=== PATIENT | male | born 1995 | race Caucasian/White ===

== ENCOUNTER 2017-11-12 20:40 | Emergency (ER) | payer OTHER, BC ==
[~2017-11-12] VITALS: Ht 190.5 cm; Wt 131.5 kg
--- OUTSIDE RECORDS SUMMARY | 2017-11-12 20:45 | XMS REPORT | Continuity of Care Document ---
Author Author [facility] Organization [facility] Address Unknown Phone Unavailable Allergies Active Description Code Type Severity Reaction Onset Reported/Identified Relationship to Patient Clinical Status Yes No Known Drug Allergies [id number] Drug Allergy Unknown N/A 06/26/2013 Medications There is no data. Problems Date Dx Coded Attending Type Code Diagnosis Diagnosed By 06/27/2013 ALIE BOCANEGRA MD Ot 305.00 ALCOHOL ABUSE-UNSPEC 06/27/2013 ALIE BOCANEGRA MD Ot 873.43 OPEN WOUND OF LIP 06/27/2013 ALIE BOCANEGRA MD Ot E000.8 OTHER EXTERNAL CAUSE STATUS 06/27/2013 ALIE BOCANEGRA MD Ot E849.0 ACCIDENT IN HOME 06/27/2013 ALIE BOCANEGRA MD Ot E888.1 FALL STRIKING OBJECT NEC 06/17/2014 Ot 427.9 12/18/2014 Ot 427.9 10/25/2015 Ot 427.9 CARDIAC DYSRHYTHMIA NOS Procedures Code Description Performed By Performed On 96.04 06/27/2013 96.71 06/27/2013 Results There is no data. Encounters ACCT No. Visit Date/Time Discharge Status Pt. Type Provider Facility Loc./Unit Complaint [id number] 06/27/2013 02:25:00 06/27/2013 09:50:00 DIS Inpatient ALIE BOCANEGRA MD [facility] ICU HEAD INJURY,AMS,ALCOHOL INTOXICATION [id number] 08/15/2011 16:38:00 Document Registration
[2017-11-12] MEDS ORDERED: LIDOCAINE 1% INJ 20 ML 20 ML VIAL ONE (20:56)
[2017-11-12] MEDS ORDERED: LIDOCAINE 2% 20 ML (XYLOCAINE) VIAL INJ ONE (21:00)
[2017-11-12] MEDS ORDERED: TETANUS,DIPTH,PERTUSS P/F (BOOSTRIX) 0.5 ML VIAL IM STA (21:12)
[2017-11-12] MEDS ORDERED: RX-TRAMADOL 50 MG (ULTRAM) TAB PPK#4 PO ONE (21:15)
[2017-11-12] MEDS ORDERED: RX-NAPROXEN (NAPROSYN) 250 MG TAB PPK#4 PO ONE (21:15)
[2017-11-12] MEDS ORDERED: RX-TRIMETH/SULFA. 160-800 MG (BACTRIM DS) TAB PPK#2 PO ONE (21:15)
[2017-11-12] MEDS ORDERED: RX-MUPIROCIN (BACTROBAN) 2% OINT 22 GM TUBE TOP STA (21:19)
--- NOTE | 2017-11-12 21:20 | ED Upper Extremity ---
General Chief Complaint: Foreign Body Stated Complaint: L HAND METAL IN PINKIE Nursing Triage Note: PT HAS METAL WIRE IMPALED IN LEFT INDEX FINGER. Source: patient Exam Limitations: no limitations History of Present Illness Date Seen by Provider: Nov 12, 2017 Time Seen by Provider: 20:50 Initial Comments PT ARRIVES VIA POV FROM WORK AT HOME DEPOT STATES HE WAS PULLING ON A REFRIGERATOR BOX, THAT WAS WRAPPED WITH TWISTED DOUBLE WIRE, AND HIS LEFT 5TH FINGER GOT CAUGHT ON THE WIRE AND ONE OF THE TWO WIRES HAS IMPALED HIS LEFT 5TH FINGER OCCURRED JUST PRIOR TO ARRIVAL NO PARESTHESIAS OR MOTOR DEFICITS PT IS RIGHT HANDED NO PRIOR INJURY TO THIS FINGER OR HAND. PT IS NOT UP TO DATE ON TETANUS VACCINE Allergies and Home Medications Allergies Coded Allergies: No Known Drug Allergies (Unverified , 06/26/13) Home Medications Sulfamethoxazole/Trimethoprim 1 Each Tablet, 1 EACH PO BID Prescribed by: MARIJA SCHWARTZ on 11/12/172131 Patient Home Medication List Home Medication List Reviewed: Yes Review of Systems Constitutional: no symptoms reported Musculoskeletal: see HPI Skin: see HPI Psychiatric/Neurological: No Symptoms Reported Past Mjvuoat-Ltlpuj-Wcurpw Hx Patient Social History Alcohol Use: Occasionally Uses Recreational Drug Use: No Smoking Status: Never a Smoker Recent Foreign Travel: No Contact w/Someone Who Travel: No Immunizations Up To Date Tetanus Booster (TDap): More than 5yrs PED Vaccines UTD: Yes Past Medical History Surgeries: Yes (mole removal) Respiratory: No Cardiac: Yes (SVT, Irregular heart, normal with exertion) Neurological: No Reproductive Disorders: No Sexually Transmitted Disease: No HIV/AIDS: No Gastrointestinal: No Musculoskeletal: No Endocrine: No HEENT: No Cancer: No Psychosocial: No Integumentary: No Blood Disorders: No Adverse Reaction/Blood Tranf: No Family Medical History Cancer Cataract 03 FATHER Chest pain Family history: Alzheimer's disease 03 FATHER (paternal grandmother) Family history: Diabetes mellitus Hearing loss 03 FATHER (paternal grandfather) Hypercholesterolemia Kidney disease 03 FATHER (father had kidney stones) Stroke 03 MOTHER (maternal Grandfather) No Family History of: Seizure disorder Tuberculosis Physical Exam Vital Signs Vital Signs - First Documented 11/12/17 20:45 Temp 98.0 Pulse 77 Resp 21 B/P (MAP) 164/100 (121) Pulse Ox 97 O2 Delivery Room Air Capillary Refill : Height, Weight, BMI Height: 6'3.00" Weight: 273lbs. 0.0oz. 123.557555ax; BMI Method:Estimated General Appearance: WD/WN, no apparent distress Hand: Left (5TH FINGER, WITH PIECE OF METAL EMBEDDED IN DISTAL PHALANX --2 WIRES TWISTED TOGETHER, WITH ONE END OF ONE OF THE WIRES EMBEDDED APPROXIMATLY 2 CM INTO SUB Q SKIN, WITH TENTING ALL ALONG THE PATH OF THE WIRE. PUNCTURE SITE 2 CM V-SHAPED SUPERFICIAL LACERATION. DISTAL SENSORY/VASCULAR INTACT. ) Neurologic/Psychiatric: no motor/sensory deficits, alert, normal mood/affect, oriented x 3 Skin: normal color, warm/dry, other ( ABOVE) Procedures/Interventions I&D : Progress AREA CLEANSED WITH BETASEPT INJECTED WITH 1% LIDOCAINE WIRE EASILY REMOVED WITHOUT DIFFICULTY FULL ROM WITHOUT DIFFICULTY AFTER REMOVAL MOTOR/SENSORY/VASCULAR INTACT. AREA CLEANSED AND DRESSED WITH BACTROBAN AND GAUZE. FINGER SPLINT APPLIED. Progress/Results/Core Measures Results/Orders My Orders Orders - MARIJA SCHWARTZ DO Lidocaine 2% Injection 20 Ml (Xylocaine (11/12/17 21:00) Lidocaine 1% Inj 20 Ml (Xylocaine 1% Inj (11/12/17 20:56) Dipht,Pertuss(Acell),Tet Adult (Boostrix (11/12/17 21:12) Wound Dressing-Ed (11/12/17 21:12) Ed Ortho Supplies Order (11/12/17 21:12) Rx-Naproxen (Rx-Naprosyn) (11/12/17 21:15) Rx-Tramadol Hcl (Rx-Ultram) (11/12/17 21:15) Rx-Trimeth/Sulfameth Ds Tab (Rx-Bactrim/ (11/12/17 21:15) Rx-Mupirocin 2% Oint (Rx-Bactroban) (11/12/17 21:19) Rx-Mupirocin 2% Oint (Rx-Bactroban) (11/12/17 21:22) Medications Given in ED Current Medications Medications Dose Ordered Sig/Lg Route Start Time Stop Time Status Last Admin Dose Admin Lidocaine HCl 20 ml STK-MED ONCE .ROUTE 11/12/17 20:56 11/12/17 21:00 DC 9/3/18 21:00 20 ML Naproxen 250 mg ONCE ONCE PO 11/12/17 21:15 11/12/17 21:16 DC 11/12/17 21:50 250 MG Tramadol HCl 50 mg ONCE ONCE PO 11/12/17 21:15 11/12/17 21:16 DC 11/12/17 21:50 50 MG Trimethoprim/ Sulfamethoxazole 1 tab ONCE ONCE PO 11/12/17 21:15 11/12/17 21:16 DC 11/12/17 21:50 1 TAB Vital Signs/I&O 11/12/17 11/12/17 20:45 21:54 Temp 98.0 98.0 Pulse 77 77 Resp 21 21 B/P (MAP) 164/100 (121) 140/88 (121) Pulse Ox 97 97 O2 Delivery Room Air Departure Impression Primary Impression: FOREIGN BODY IN LEFT FIFTH FINGER Additional Impression: Nwfnawhvku-nshzdbbpg-xxtilta (DPT) vaccination administered at current visit Disposition: HOME, SELF-CARE Condition: Improved Departure-Patient Inst. Referrals: MINDY MCBRIDE DO (PCP/Family) Primary Care Physician Patient Instructions: Diphtheria and Tetanus Toxoids, and Acellular Pertussis Vaccine, Wound Care (DC) Add. Discharge Instructions: LEAVE DRESSING IN PLACE FOR 24 HOURS AFTER 24 HOURS, CLEAN AREA TWICE A DAY WITH ANTIBACTERIAL SOAP AND WATER, APPLY ANTIBIOTIC OINTMENT AND FRESH DRESSING TWICE A DAY WEAR SPLINT AT ALL TIMES ICE / ELEVATE AND APPLY PRESSURE IF BLEEDING OCCURS TYLENOL AND MOTRIN NEEDED FOR PAIN FOLLOW UP WITH OCCUPATIONAL HEALTH/[facility]MAN'[facility] DR IN 2 DAYS FOR FURTHER CARE All discharge instructions reviewed with patient and/or family. Voiced understanding. Scripts Sulfamethoxazole/Trimethoprim (Bactrim Ds Tablet) 1 Each Tablet 1 EACH PO BID, #20 TAB Prov: MARIJA SCHWARTZ DO 11/12/17 MARIJA SCHWARTZ DO Nov 12, 2017 21:20
[2017-11-12] MEDS ORDERED: RX-MUPIROCIN (BACTROBAN) 2% OINT 22 GM TUBE ONE (21:22)
[2017-11-12] MEDS ORDERED: SULF1TAB35 PO (21:32)
[2017-11-12 21:54] VITALS: BP 140/88
== END 2017-11-12 21:54 | disposition home or self-care (01) ==
LOC: EDUNIT# 20:40 → ER 20:42
DX: S60.457A Superficial foreign body of left little finger, initial encounter (principal); Z23 Encounter for immunization; W23.1XXA Caught, crushed, jammed, or pinched between stationary objects, initial encounter
CPT/HCPCS: 29130; 90471; 90715

== ENCOUNTER 2021-08-13 20:10 | Emergency (ER) | payer BC, OTHER ==
[~2021-08-13] VITALS: Ht 193 cm; Wt 159.1 kg
[~2021-08-13 20:10] MED LIST: SULF1TAB38 PO
[2021-08-13] MEDS ORDERED: ROCURONIUM 50 MG/5 ML (ZEMURON) VIAL IV ONE (20:14)
[2021-08-13] MEDS ORDERED: CATHETER FLUSH 10 ML SYR IVP ONE (20:14)
[2021-08-13] MEDS ORDERED: MIDAZOLAM 5 MG/5 ML (VERSED) VIAL IJ ONE (20:14)
[2021-08-13] MEDS ORDERED: fentaNYL INJ 100 MCG/2 ML AMP IV ONE (20:14)
[2021-08-13] MEDS ORDERED: SUCCINYLCHOLINE INJ 100 MG/5 ML SYR/VIAL INJ ONE (20:14)
[2021-08-13] MEDS ORDERED: LACTATED RINGERS 1,000 ML IV ONE ×2 (20:15→21:15)
[2021-08-13 20:26] LABS: BASOPHILS # (AUTO) 0.1 10^3/uL (0.0-0.1); BASOPHILS % (AUTO) 1 % (0-10); EOSINOPHILS % (AUTO) 1 % (0-10); HEMATOCRIT 48 % (40-54); HEMOGLOBIN 16.9 g/dL (13.3-17.7); LYMPHOCYTES # (AUTO) 1.4 10^3/uL (1.0-4.0); LYMPHOCYTES % (AUTO) 21 % (12-44); MEAN CORPUSCULAR HEMOGLOBIN 29 pg (25-34); MEAN CORPUSCULAR HGB CONC 35 g/dL (32-36); MEAN CORPUSCULAR VOLUME 83 fL (80-99); MEAN PLATELET VOLUME 9.6 fL (9.0-12.2); MONOCYTES # (AUTO) 0.2 10^3/uL (0.0-1.0); MONOCYTES % (AUTO) 4 % (0-12); NEUTROPHILS # (AUTO) 4.8 10^3/uL (1.8-7.8); NEUTROPHILS % (AUTO) 74 % (42-75); PLATELET COUNT 253 10^3/uL (130-400); WHITE BLOOD COUNT 6.5 10^3/uL (4.3-11.0)
[2021-08-13] MEDS ORDERED: ADENOSINE 6 MG/2 ML (ADENOCARD) VIAL IV ONE (20:30)
[2021-08-13 20:35] LABS: INR 1.3 (0.8-1.4); PROTHROMBIN TIME PATIENT 16.7 SEC (12.2-14.7)
[2021-08-13 20:38] LABS: CHLORIDE 103 MMOL/L (98-107); POTASSIUM 3.8 MMOL/L (3.6-5.0); SODIUM 139 MMOL/L (135-145)
[2021-08-13 20:39] LABS: ALBUMIN 4.1 GM/DL (3.2-4.5)
[2021-08-13 20:40] LABS: CALCIUM 8.8 MG/DL (8.5-10.1)
[2021-08-13 20:41] LABS: GLUCOSE 93 MG/DL (70-105); TOTAL PROTEIN 7.2 GM/DL (6.4-8.2)
[2021-08-13 20:42] LABS: BILIRUBIN,TOTAL 2.3 MG/DL (0.1-1.0); CARBON DIOXIDE 16 MMOL/L (21-32)
[2021-08-13] MEDS ORDERED: dilTIAZem DRIP PRE-MIX 125 ML IV ONE (20:44)
[2021-08-13 20:45] LABS: ALKALINE PHOSPHATASE 70 U/L (40-136); CREATININE SERUM 1.49 MG/DL (0.60-1.30); GFR ESTIMATED 66
[2021-08-13 20:46] LABS: ACETAMINOPHEN < 10 UG/ML (10-30); BUN/CREATININE RATIO 9
[2021-08-13 20:47] LABS: MAGNESIUM 1.4 MG/DL (1.6-2.4)
[2021-08-13 20:48] LABS: ALANINE AMINOTRANSFERASE 77 U/L (0-55); CREATINE KINASE 89 U/L (30-200)
[2021-08-13] MEDS ORDERED: NS IV 1000 ML 1,000 ML ONE (20:49)
[2021-08-13 20:56] LABS: CREATINE KINASE MB 0.5 NG/ML (<6.6)
[2021-08-13 20:58] LABS: ERYTHROCYTE SEDIMENTATION RATE 11 MM/HR (0-15)
[2021-08-13] MEDS ORDERED: MAGNESIUM 1 GM/100 ML IVPB 200 ML IV ONE (21:00)
[2021-08-13] MEDS ORDERED: MAGNESIUM 1 GM/100 ML IVPB 100 ML IV SCH (21:00)
[2021-08-13 21:08] LABS: TSH (THYROID ANALYZER) 1.27 UIU/ML (0.35-4.94)
[2021-08-13] MEDS ORDERED: ACETAMINOPHEN 650 MG SUPP (TYLENOL) PR ONE (21:15)
[2021-08-13] MEDS ORDERED: NS IV 1000 ML 1,000 ML IV SCH (21:15)
[2021-08-13] MEDS ORDERED: cefTRIAXone 2,000 MG in NS (IVPB) 50 ML IV ONE (21:15)
[2021-08-13 21:24] LABS: BILIRUBIN,URINE 1+ (NEGATIVE); CLARITY,URINE CLOUDY; COLOR,URINE YELLOW; GLUCOSE, URINE (UA) NEGATIVE (NEGATIVE); KETONES,URINE TRACE (NEGATIVE); LEUKOCYTE ESTERASE ,URINE NEGATIVE (NEGATIVE); NITRITE,URINE NEGATIVE (NEGATIVE); PH,URINE 6.5 (5-9); PROTEIN,URINE 2+ (NEGATIVE)
--- NOTE | 2021-08-13 21:32 | Diagnostic Imaging Report ---
INDICATION: Altered mental status. EXAMINATION: Portable chest at 9:10 PM. There is an ET tube with the tip at the thoracic inlet. There is an NG tube projecting over the stomach. There is gaseous distention of the stomach. There is some infiltrate present in the right upper lobe. There is some bibasilar discoid atelectasis. IMPRESSION: Right upper lobe infiltrate. ET tube tip is at the thoracic inlet. It could safely be advanced 4 cm. Dictated by: Dictated on workstation # [id number]
[2021-08-13 21:33] LABS: BACTERIA,URINE LARGE /HPF
[2021-08-13] MEDS ORDERED: PROPOFOL DRIP (ICU) 100 ML IV ONE (21:33)
[2021-08-13 21:37] LABS: AMPHETAMINE SCREEN, URINE NEGATIVE (NEGATIVE); BARBITURATE SCREEN URINE NEGATIVE (NEGATIVE); BENZODIAZEPINES SCREEN URINE NEGATIVE (NEGATIVE); CANNABINOID SCREEN, URINE NEGATIVE (NEGATIVE); COCAINE SCREEN URINE NEGATIVE (NEGATIVE); METHADONE STAT NEGATIVE (NEGATIVE); OPIATE SCREEN URINE NEGATIVE (NEGATIVE); OXYCODONE STAT NEGATIVE (NEGATIVE); PROPOXYPHENE STAT NEGATIVE (NEGATIVE); TRICYCLIC ANTIDEPRESSANTS SCRE NEGATIVE (NEGATIVE)
[2021-08-13] MEDS ORDERED: PROPOFOL DRIP (ICU) 100 ML IV SCH (21:45)
--- NOTE | 2021-08-13 21:57 | Diagnostic Imaging Report ---
PROCEDURE: CT head wo r/o stroke. TECHNIQUE: Multiple contiguous axial images were obtained through the brain without the use of intravenous contrast. Auto Exposure Controls were utilized during the CT exam to meet ALARA standards for radiation dose reduction. INDICATION: Altered mental status The ventricles are normal in size, shape and position. There are no masses or hemorrhages. There are no extra-axial fluid collections. IMPRESSION: Negative CT head. There is no evidence for acute infarct. Dictated by: Dictated on workstation # [id number]
[2021-08-13] MEDS ORDERED: VANCOMYCIN INJECTION 1,000 MG in NS (IVPB) 250 ML IV SCH (23:15)
[2021-08-13] MEDS ORDERED: ACYCLOVIR INJECTION 500 MG in NS (IVPB) 100 ML IV SCH (23:15)
[2021-08-13] MEDS ORDERED: ONDANSETRON 4 MG/2 ML (SDV) Z0FRAN ONE (23:29)
[2021-08-13] MEDS ORDERED: ONDANSETRON 4 MG/2 ML (SDV) Z0FRAN IVP ONE (23:30)
[2021-08-13] MEDS ORDERED: MIDAZOLAM 5 MG/5 ML (VERSED) VIAL ONE (23:33)
[2021-08-13] MEDS ORDERED: PROPOFOL DRIP (ICU) 200 ML IV ONE (23:35)
[2021-08-13 23:56] LABS: APPEARANCE,CSF CLEAR; COLOR,CSF COLORLESS; RED BLOOD CELL,CSF 3.33 CELLS (0-0); WHITE BLOOD CELL,CSF 2.22 CELLS (0-5)
[2021-08-13 23:58] LABS: CSF TUBE NUMBER 3
--- NOTE | 2021-08-14 00:32 | Anesthesia-Procedure Note ---
Procedures/Interventions Procedure Start/Stop/Diagnosis Date of Procedure: Aug 13, 2021 Start Time: 22:30 Referring Physician: Dr Murphy Preprocedural Diagnosis: Mental Status change, Fever Brief History Called for lumbar puncture. Pt had recent onset of mental status change and fever of greater than 106. Platelet count within normal limits. Spoke with family about the procedure d/t patient being intubated prior to my arrival and they wished for me to proceed with lumbar puncture. Stop Time: 23:15 Postprocedural Diagnosis: Same Intubation Reason Intubation/Diagnosis: Coughing/Vomiting S/P intubation (after LP done), ETT no longer in position RSI: Yes 100% pre-Ox, [id number]: Yes (100% FiO2 via ventilator with SaO2 in the low 90's.) Intubation Method: orotracheal Videoscope used: Yes (Maddox X3 blade) Grade View: 1 Medications: Propofol (100 mg IV), Rocuronium (50 mg IV), Succinylcholine (100 mg IV), Versed (5 mg IV) Mask Ventilation: positive (via ETT which was suspected to be just superior to the glottic opening) Positive End Tide CO2: Yes Breath Sounds after Intubation: bilateral-equal ETT Securred @ (cm): 24 Intubated with ease: Yes Intubation Complications: vomited (see above, with ETT in place but most likely extubated d/t coughing) Post Intubation Xray-done: Yes Lumbar Puncture Discussed Risk,Benefits: Yes Patient Consents: Yes (Verbal consent via family) Position: L3-4, Left Sterile Technique: Yes (Sterile prep and drape) Opening Pressure: 15 Fluid Color: Clear, slight heme tinge on first vial secondary to multiple attempts Spinal Needle Used: Other (22 G Quincke 5") Procedure Notes See above for lumbar puncture details. Attempted at L4-5 initially but only bony contact. Localized at L 3-4. + CSF after multiple needle redirects. Clear CSF noted with an opening pressure of 15 cm of CSF. ~2 ml CSF times first two vials and after ~ 1/2 ml in 3 vial CSF return stopped. Due to the difficulty of the procedure needle was withdrawn and CSF was sent to lab per Dr Murphy's order. Sterile bandage applied. HAVEN MOSLEY DO Aug 14, 2021 00:32
[2021-08-14 00:35] VITALS: BP 104/66
--- NOTE | 2021-08-14 07:54 | Diagnostic Imaging Report ---
INDICATION: Shortness of breath. Comparison is made with prior exam of 08/13/2021. FINDINGS: The endotracheal tube is in the upper trachea well above the scapular inlet. The left chest tube is in place. Nasogastric tube is in place. There is cardiomegaly and some venous congestion. IMPRESSION: The endotracheal tube is well above the thoracic inlet and needs to be advanced at least 10 cm. Cardiomegaly and some central pulmonary venous congestion the left pulmonary infiltrate. Dictated by: Dictated on workstation # [id number]
--- NOTE | 2021-08-14 08:07 | Diagnostic Imaging Report ---
EXAMINATION: Chest 1 view HISTORY: Tube placement COMPARISON: 08/13/2021 FINDINGS: Endotracheal tube tip terminates 4 cm above the iván. Gastric tube tip terminates below the field of view. There is right mid zone atelectasis. Lung volumes are small. Heart size is accentuated by portable technique. No pleural effusion or pneumothorax. IMPRESSION: 1. Right mid zone atelectasis and small lung volumes. Dictated by: Dictated on workstation # [id number]
[2021-08-14 09:26] LABS: CSF GLUCOSE 83 MG/DL (50-80)
[2021-08-14 09:32] LABS: CSF TOTAL PROTEIN 24 MG/DL (15-40)
--- NOTE | 2021-08-31 04:20 | ED General ---
General Chief Complaint: Altered Mental Status Stated Complaint: DISORIENTED,SOA Nursing Triage Note: Alerted to pt condition upon parents yelling in waiting area. Pt found sitting in chair, shaking head up and down and moving arms in rhythmic motion. Wheelchair to area. Pt attempted to stand to command with assist of three. In wheelchair to room. Again multi assist to stretcher, altered, and unable to follow commands. Attached to safety grooving machine operator. See further notes. Source of Information: Family Exam Limitations: Other (PT UNABLE TO PROVIDE ANY INFORMATION DUE TO ALTERED MENTAL STATUS. ) History of Present Illness Date Seen by Provider: Aug 13, 2021 Time Seen by Provider: 20:10 Initial Comments PT ARRIVES VIA POV FROM HOME WITH MULTIPLE FAMILY MEMBERS PT BROUGHT IN WHEELCHAIR FROM WAITING ROOM, WITH 3-4 PERSON ASSIST FOR TRANSFERS PT WITH ALTERED MENTAL STATUS--SYMPTOMS BEGAN JUST PRIOR TO ARRIVAL. PT HAD REPORTEDLY BEEN FINE ALL DAY. NO OTHER INFORMATION IS OBTAINABLE AT THIS TIME PT IS SEMI-OBTUNDED, KEEPS EYES CLOSED, SITTING UP AND NODDING HEAD BACK AND FORTH, HANDS GRIPPING ARM RESTS OF WHEELCHAIR--THIS STOPS WHEN ASKED TO STOP MOVING HIS HEAD PT DOES OPEN HIS EYES BRIEFLY TO COMMAND PT IS ABLE TO FOLLOW A COUPLE OF BASIC COMMANDS NOTED ABOVE, OTHERWISE IS NOT FOLLOWING COMMANDS WELL. PT IS MOANING AND GRUNTING PT IS HYPERVENTILATING ON ARRIVAL PT DOES NOT MAKE ANY ATTEMPT TO TALK OR ANSWER QUESTIONS. LATER WAS ABLE TO SPEAK WITH DAD AND PT'S AUNT, WHO IS AN RN HERE IN HOSPITAL THEY ARE ON THE PHONE WITH PT'S ROOM MATE AND ALL HAVE REPORTED THAT PT HAS BEEN FINE, NO RECENT ILLNESS AND ARE ALL ADAMANT THAT HE HAS NOT BEEN DRINKING ALCOHOL AND DOES NOT USE DRUGS. ROOM MATE STATES THERE ARE NO MEDICATIONS IN THE RESIDENCE OTHER THAN GOUT MEDICATION. PT HAS HISTORY OF SVT WHEN MUCH YOUNGER, BUT NO PROBLEMS FOR YEARS, AND NO MEDICATIONS OR PROCEDURES FOR IT. OTHERWISE NO PAST MEDICAL HISTORY Allergies and Home Medications Allergies Coded Allergies: No Known Drug Allergies (Unverified , 06/26/13) Patient Home Medication List Home Medication List Reviewed: No Sulfamethoxazole/Trimethoprim (Bactrim Ds Tablet) 1 Each Tablet, 1 EACH PO BID Prescribed by: MARIJA SCHWARTZ on 11/12/172131 Review of Systems Review of Systems Constitutional: see HPI (LATER DURING ER COURSE, PT NOTED TO HAVE FEVER OF 106.4. ) Respiratory: see HPI Psychiatric/Neurological: See HPI Past [id number] Hx Patient Social History Tobacco Use?: No Smoking Status: Never a Smoker Use of E-Cig and/or Vaping dev: Unable to obtain Use of E-Cig and/or Vaping Mikhail: Never a User Substance use?: No Alcohol Use?: No Immunizations Up To Date Tetanus Booster (TDap): More than 5yrs PED Vaccines UTD: Yes Past Medical History Surgeries: Yes (mole removal) Respiratory: No Cardiac: Yes (SVT, Irregular heart, normal with exertion) Irregular Heartbeat Neurological: No Reproductive Disorders: No Sexually Transmitted Disease: No HIV/AIDS: No Genitourinary: No Gastrointestinal: No Musculoskeletal: No Endocrine: No HEENT: No Cancer: No Psychosocial: No Integumentary: No Blood Disorders: No Adverse Reaction/Blood Tranf: No Family Medical History Cancer Cataract 03 FATHER Chest pain Family history: Alzheimer's disease 03 FATHER (paternal grandmother) Family history: Diabetes mellitus Hearing loss 03 FATHER (paternal grandfather) Hypercholesterolemia Kidney disease 03 FATHER (father had kidney stones) Stroke 03 MOTHER (maternal Grandfather) No Family History of: Seizure disorder Tuberculosis Physical Exam Vital Signs Capillary Refill : Less Than 3 Seconds Height, Weight, BMI Height: 6'3.00" Weight: 290lbs. 0.0oz. [id number]; 42.00 BMI Method:Stated General Appearance: WD/WN, Obese, Severe Distress, Other (MENTATION AND BEHAVIOR NOTED ABOVE. ) HEENT: PERRL/EOMI, Other (PUPILS PINPOINT AND EQUAL) Neck: Full Range of Motion Respiratory: Other (HYPERVENTILATING WITH UPPER AIRWAY WHEEZING AT INTERVALS. ) Cardiovascular: Tachycardia (HR 180-205) Gastrointestinal: Soft Extremity: Normal Capillary Refill Neurologic/Psychiatric: Other (MENTATION AND BEHVIOR NOTED ABOVE. DOES MOVE ALL EXTREMITES EQUALLY) Skin: Warm/Dry; No Rash Focused Exam Sepsis Stage: Severe Sepsis Possible Source: Unknown Lactate Level 08/13/21 21:24: Lactic Acid Level 3.05*H 08/13/21 23:23: Lactic Acid Level 2.37*H Time of Focused Exam: 22:00 Respiratory: Other (ON VENTILATOR. LUNGS CLEAR TO AUSCULTATION) Cardiovascular: No JVD, Tachycardia (BUT RATE IS NOW DOWN TO 120'S.) Skin: normal color, warm/dry Lactic Acid Level Laboratory Tests Test 08/13/21 21:24 08/13/21 23:23 Lactic Acid Level 3.05 MMOL/L (0.50-2.00) *H 2.37 MMOL/L (0.50-2.00) *H Within 3hrs of presentation: Admin fluids, Admin ABX, Blood cultures prior to ABX's, Focus exam, Lactate level Procedures/Interventions Reason for Intubation: Coughing/Vomiting S/P intubation (after LP done), ETT no longer in position Date of ETT Placement: Aug 13, 2021 Intubation Method: orotracheal Tube Size: 7.50 Medications: Propofol (100 mg IV), Rocuronium (50 mg IV), Succinylcholine (100 mg IV), Versed (5 mg IV) Positive End Tide CO2: Yes Breath Sounds after Intubation: bilateral-equal Intubation Complications: vomited (see above, with ETT in place but most likely extubated d/t coughing) Post Intubation Xray: Yes PT LATER RE-INTUBATED BY DR. MOSLEY AFTER PT BEGAN VOMITING AND DISPLACED ET TUBE AND NG TUBE. Discussed Risk,Benefits: Yes Patient Consents: Yes (Verbal consent via family) Position: L3-4, Left Sterile Technique: Yes (Sterile prep and drape) Opening Pressure: 15 Fluid Color: Clear, slight heme tinge on first vial secondary to multiple attempts PERFORMED BY DR. MOSLEY Defibrillation: CARDIOVERSION ATTEMPTS X 4 FOR SVT--NO CHANGE IN RATE OR RHYTHM Rhythm: SVT Progress/Results/Core Measures Suspected Sepsis SIRS Temperature: Pulse: 125 Respiratory Rate: 18 Laboratory Tests 08/13/21 20:18: White Blood Count 6.5 Blood Pressure 104 /66 Mean: 79 08/13/21 21:24: Lactic Acid Level 3.05*H 08/13/21 23:23: Lactic Acid Level 2.37*H Laboratory Tests 08/13/21 20:18: Creatinine 1.49H, INR Comment 1.3, Platelet Count 253, Total Bilirubin 2.3H Results/Orders Lab Results Laboratory Tests Test 08/13/21 20:13 08/13/21 20:18 08/13/21 20:23 08/13/21 21:16 Range/Units Lab Scanned Report Referred Lab Report [id number] White Blood Count 6.5 4.3-11.0 10^3/uL Red Blood Count 5.81 H 4.30-5.52 10^6/uL Hemoglobin 16.9 13.3-17.7 g/dL Hematocrit 48 40-54 % Mean Corpuscular Volume 83 80-99 fL Mean Corpuscular Hemoglobin 29 25-34 pg Mean Corpuscular Hemoglobin Concent 35 32-36 g/dL Red Cell Distribution Width 13.5 10.0-14.5 % Platelet Count 253 130-400 10^3/uL Mean Platelet Volume 9.6 9.0-12.2 fL Immature Granulocyte % (Auto) 0 % Neutrophils (%) (Auto) 74 42-75 % Lymphocytes (%) (Auto) 21 12-44 % Monocytes (%) (Auto) 4 0-12 % Eosinophils (%) (Auto) 1 0-10 % Basophils (%) (Auto) 1 0-10 % Neutrophils # (Auto) 4.8 1.8-7.8 10^3/uL Lymphocytes # (Auto) 1.4 1.0-4.0 10^3/uL Monocytes # (Auto) 0.2 0.0-1.0 10^3/uL Eosinophils # (Auto) 0.0 0.0-0.3 10^3/uL Basophils # (Auto) 0.1 0.0-0.1 10^3/uL Immature Granulocyte # (Auto) 0.0 0.0-0.1 10^3/uL Erythrocyte Sedimentation Rate 11 0-15 MM/HR Prothrombin Time 16.7 H 12.2-14.7 SEC INR Comment 1.3 0.8-1.4 Activated Partial Thromboplast Time 33 24-35 SEC Sodium Level 139 135-145 MMOL/L Potassium Level 3.8 3.6-5.0 MMOL/L Chloride Level 103 98-107 MMOL/L Carbon Dioxide Level 16 L 21-32 MMOL/L Anion Gap 20 H 5-14 MMOL/L Blood Urea Nitrogen 14 7-18 MG/DL Creatinine 1.49 H 0.60-1.30 MG/DL Estimat Glomerular Filtration Rate 66 BUN/Creatinine Ratio 9 Glucose Level 93 70-105 MG/DL Calcium Level 8.8 8.5-10.1 MG/DL Corrected Calcium 8.7 8.5-10.1 MG/DL Magnesium Level 1.4 L 1.6-2.4 MG/DL Total Bilirubin 2.3 H 0.1-1.0 MG/DL Aspartate Amino Transf (AST/SGOT) 88 H 5-34 U/L Alanine Aminotransferase (ALT/SGPT) 77 H 0-55 U/L Alkaline Phosphatase 70 40-136 U/L Total Creatine Kinase 89 30-200 U/L Creatine Kinase MB 0.5 <6.6 NG/ML Myoglobin 46.3 10.0-92.0 NG/ML C-Reactive Protein High Sensitivity 7.88 H 0.00-0.50 MG/DL B-Type Natriuretic Peptide 48.3 <100.0 PG/ML Total Protein 7.2 6.4-8.2 GM/DL Albumin 4.1 3.2-4.5 GM/DL Triglycerides Level 257 H <150 MG/DL Procalcitonin 14.84 H <0.10 NG/ML TSH [place] Testing 1.27 0.35-4.94 UIU/ML Salicylates Level < 5.0 L 5.0-20.0 MG/DL Acetaminophen Level < 10 L 10-30 UG/ML Serum Alcohol < 10 <10 MG/DL Influenza Type A (RT-PCR) Not Detected Not Detecte Influenza Type B (RT-PCR) Not Detected Not Detecte SARS-CoV-2 RNA (RT-PCR) Not Detected Not Detecte Urine Color YELLOW Urine Clarity CLOUDY Urine pH 6.5 5-9 Urine Specific [place] 1.025 H 1.016-1.022 Urine Protein 2+ H NEGATIVE Urine Glucose (UA) NEGATIVE NEGATIVE Urine Ketones TRACE H NEGATIVE Urine Nitrite NEGATIVE NEGATIVE Urine Bilirubin 1+ H NEGATIVE Urine Urobilinogen 1.0 < = 1.0 MG/DL Urine Leukocyte Esterase NEGATIVE NEGATIVE Urine RBC (Auto) 1+ H NEGATIVE Urine RBC 2-5 H /HPF Urine WBC 5-10 H /HPF Urine Squamous Epithelial Cells 2-5 /HPF Urine Renal Epithelial Cells NONE /HPF Urine Crystals NONE /LPF Urine Bacteria LARGE H /HPF Urine Casts NONE /LPF Urine Mucus NEGATIVE /LPF Urine Culture Indicated CULTURE PENDING Urine Opiates Screen NEGATIVE NEGATIVE Urine Oxycodone Screen NEGATIVE NEGATIVE Urine Methadone Screen NEGATIVE NEGATIVE Urine Propoxyphene Screen NEGATIVE NEGATIVE Urine Barbiturates Screen NEGATIVE NEGATIVE Ur Tricyclic Antidepressants Screen NEGATIVE NEGATIVE Urine Phencyclidine Screen NEGATIVE NEGATIVE Urine Amphetamines Screen NEGATIVE NEGATIVE Urine Methamphetamines Screen NEGATIVE NEGATIVE Urine Benzodiazepines Screen NEGATIVE NEGATIVE Urine Cocaine Screen NEGATIVE NEGATIVE Urine Cannabinoids Screen NEGATIVE NEGATIVE Test 08/13/21 21:24 08/13/21 23:00 08/13/21 23:23 08/14/21 23:00 Range/Units Lactic Acid Level 3.05 *H 2.37 *H 0.50-2.00 MMOL/L CSF Tube Number 3 CSF Appearance CLEAR CSF Color COLORLESS CSF WBC 2.22 0-5 CELLS CSF RBC 3.33 H 0-0 CELLS CSF Lymphocytes % CSF Mononuclear WBCs % CSF Polynuclear WBCs % CSF Glucose 83 H 50-80 MG/DL CSF Total Protein 24 15-40 MG/DL Lyme Disease Screen IgG & IgM Ab 0.02 0.00-0.89 Index Lyme Antibody Interpretation Negative Negative Ehrlichia chaffeensis IgG Antibody <1:16 <1:16 Ehrlichia chaffeensis IgM Antibody <1:10 <1:10 West Nile Virus IgG Antibody 0.07 <=1.29 IV West Nile Virus IgM Antibody 0.24 <=0.89 IV Spotted Fever Group IgG Antibody <1:16 <1:16 Spotted Fever Group IgM Antibody <1:10 <1:10 [place] Antibody <1:20 CSF [place] Encephalitis IgG Ab <1:1 CSF [place] Encephalitis IgM Ab <1:1 CSF [place] Encephalitis Interp SEE FOOTNOTE CSF Eastern Equine Encephalitis IgG <1:1 CSF Eastern Equine Encephalitis IgM <1:1 CSF [place] Equine Encephalitis Interp SEE FOOTNOTE CSF [place] Encephalitis IgG Ab <1:1 CSF [place] Encephalitis IgM Ab <1:1 CSF [place] Encephalitis Interp SEE FOOTNOTE CSF Western Equine Encephalitis IgG <1:1 CSF Western Equine Encephalitis IgM <1:1 CSF West Equine Encephalitis Interp SEE FOOTNOTE CSF Herpes Simplex I IgG Ab Index <0.01 CSF Herpes Simplex Virus I IgM Ab NEGATIVE CSF Herpes Simplex II IgG Ab Index 0.19 CSF Herpes Simplex Virus II IgM Ab NEGATIVE CSF Lymphocytic choriomeningit IgG <1:1 CSF Lymphocytic choriomeningit IgM <1:1 CSF Lymphocytic choriomeningi Intrp SEE FOOTNOTE CSF Mumps Virus IgG Antibody <1:8 CSF Mumps Virus IgM Antibody <1:1 CSF Mumps Antibody Interpretation ANTIBODY NOT DETECT CSF West Nile Virus IgG Antibody <1.30 CSF West Nile Virus IgM Antibody <0.90 Reference Lab Test Specimen Type CSF Herpes Simplex Virus I DNA (PCR) Not Detected Not Detected Herpes Simplex Virus II DNA (PCR) Not Detected Not Detected Micro Results Microbiology 08/13/21 Blood Culture - Final, Complete No growth 08/13/21 Gram Stain - Final, Complete 08/13/21 CSF Culture - Final, Complete No growth 08/13/21 Blood Culture - Final, Complete Propionibacterium species 08/13/21 Gram Stain - Final, Complete 08/13/21 Sputum Culture - Final, Complete Usual upper respiratory anitra 08/13/21 Urine Culture - Final, Complete NO GROWTH My Orders Orders - MARIJA SCHWARTZ DO Accucheck Stat ONCE (08/13/21 20:13) Ed Iv/Invasive Line Start (08/13/21 20:13) Ekg Tracing (08/13/21 20:13) Catheter(Urinary) Insert & Ass 03,15 (08/13/21 20:13) Monitor-Rhythm Ecg Trace Only (08/13/21 20:13) Ct Head Wo-R/O Stroke (08/13/21 20:13) Acetaminophen (08/13/21 20:13) Alcohol (08/13/21 20:13) Arterial Blood Gas (08/13/21 20:13) Bnp [place] (08/13/21 20:13) Cbc With Automated Diff (08/13/21 20:13) Comprehensive Metabolic Panel (08/13/21 20:13) Creatine Kinase (08/13/21 20:13) Creatine Kinase Mb (08/13/21 20:13) Hs C Reactive Protein (08/13/21 20:13) Drug Screen Stat (Urine) (08/13/21 20:13) Magnesium (08/13/21 20:13) Protime With Inr (08/13/21 20:13) Partial Thromboplastin Time (08/13/21 20:13) Thyroid Analyzer (08/13/21 20:13) Ua Culture If Indicated (08/13/21 20:13) Erythrocyte Sedimentation Rate (08/13/21 20:13) Myoglobin Serum (08/13/21 20:13) Chest 1 View, Ap/Pa Only (08/13/21 20:13) Ed Iv/Invasive Line Start (08/13/21 20:13) Lactated Ringers (Lr 1000 Ml Iv Solution (08/13/21 20:15) Covid 19 Inhouse Test (08/13/21 20:18) Influenza A And B By Pcr (08/13/21 20:18) Isolation Central Supply Req (08/13/21 20:18) Adenosine Injection (Adenocard Injection (08/13/21 20:30) Diltiazem Drip Pre-Mix (Cardizem Drip Pr (08/13/21 20:44) Diltiazem Injection (Cardizem Injection) (08/13/21 20:44) Ns Iv 1000 Ml (Sodium Chloride 0.9%) (08/13/21 20:49) Magnesium 1 Gm/100 Ml Ivpb (Magnesium Prince (08/13/21 21:00) Magnesium 1 Gm/100 Ml Ivpb (Magnesium Prince (08/13/21 21:00) Acetaminophen Suppository (Tylenol Suppo (08/13/21 21:15) Blood Culture (08/13/21 21:09) Sputum Culture (08/13/21 21:09) Urine Culture (08/13/21 21:09) Ed Iv/Invasive Line Start (08/13/21 21:09) Ed Iv/Invasive Line Start (08/13/21 21:09) Vital Signs Adult Sepsis Patie Q15M (08/13/21 21:09) O2 (08/13/21 21:09) Remove Rings In Anticipation O (08/13/21 21:09) Lactic Acid Analyzer (08/13/21 21:09) Ed Iv/Invasive Line Start (08/13/21 21:09) Lactated Ringers (Lr 1000 Ml Iv Solution (08/13/21 21:15) Ns Iv 1000 Ml (Sodium Chloride 0.9%) (08/13/21 21:15) Ceftriaxone (Rocephin) (08/13/21 21:15) Propofol Drip (Icu) (Diprivan Drip (Icu) (08/13/21 21:45) Sedation Communication Q48H (08/13/21 21:31) Triglycerides (08/13/21 21:31) Propofol Drip (Icu) (Diprivan Drip (Icu) (08/13/21 21:33) Salicylate (08/13/21 21:40) Chest 1 View, Ap/Pa Only (08/13/21 22:00) Procalcitonin (Pct) (08/13/21 22:02) Tick Panel With Lyme Eia (08/13/21 22:03) Csf Culture (08/13/21 22:34) Csf Cell Count (08/13/21 22:34) Vancomycin Injection (Vancomycin Injecti (08/13/21 23:15) Acyclovir Injection (Zovirax Injection) (08/13/21 23:15) Dexamethasone Injection (Decadron Inje (08/13/21 23:15) West Nile Virus Igg & M (08/13/21 22:03) Ondansetron Injection (Zofran Injectio (08/13/21 23:30) Ondansetron Injection (Zofran Injectio (08/13/21 23:29) Midazolam Injection (Versed Injection) (08/13/21 23:33) Propofol Drip (Icu) (Diprivan Drip (Icu) (08/13/21 23:35) Dexamethasone Injection (Decadron Inje (08/13/21 23:40) Chest 1 View, Ap/Pa Only (08/14/21 ) Arterial Blood Draw - Obtain (08/13/21 ) Fentanyl Inj (Sublimaze Injection) (08/13/21 20:14) Midazolam Injection (Versed Injection) (08/13/21 20:14) Rocuronium Injection (Zemuron Injection) (08/13/21 20:14) Succinylcholine Injection (Succinylcholi (08/13/21 20:14) Sodium Chloride Flush (Catheter Flush Sy (08/13/21 20:14) Iv Push Enamel Machine Operator Ed (08/13/21 ) Vital Signs/I&O Capillary Refill : Less Than 3 Seconds 2 Blood Pressure Mean: 79 Progress Note : Progress Note PT IMMEDIATELY BROUGHT BACK TO ROOM HR 180-205, O2 SATS 89-90% ON ROOM AIR, BP 121/99 PLACED ON O2 VIA MASK, NASAL TRUMPET PLACED ON ARRIVAL MULTIPLE IV LINES STARTED SEPSIS PROTOCOL INITIATED ATTEMPTS TO OBTAIN ABG'S WERE UNSUCCESSFUL. GIVEN ADENOSINE X 3 DOSES WITHOUT ANY CHANGE IN RATE OR RHYTHM PT CARDIOVERTED X 4 WITH OUT ANY CHANGE IN RATE OR RHYTHM CARDIZEM BOLUS AND DRIP INITIATED. PT'S MENTATION AND RESPIRATORY STATUS CONTINUED TO DETERIORATE--O2 SATS DROPPING, RESPIRATIONS BECOMING MUCH MORE LABORED, PT BECOMING MORE AGITATED AND COMBATIVE, AND PT WAS INTUBATED AT THAT POINT. PT INTUBATED BY FANI WRIGHT--ET TUBE ADVANCED AFTER INITIAL CXR OBTAINED. PT LATER RE-INTUBATED BY DR. MOSLEY ( ANESTHESIOLOGIST) AFTER PT BEGAN VOMITING AT APPROXIMATELY 2329, AND ET TUBE AND NG TUBE WERE DISPLACED LP DONE BY DR. MOSLEY--OPENING PRESSURE 15, CLEAR FLUID, CSF STUDIES OBTAINED. PT'S VITALS STABLE AT TIME OF TRANSFER. ECG Initial ECG Impression Date: Aug 13, 2021 Initial ECG Impression Time: 20:20 Initial ECG Rate: 181 Initial ECG Rhythm: SVT (WITH INCOMPLETE RBBB, AND QUESTIONABLE ST SEGMENT ELEVATION) Initial ECG Comparisson: No Previous ECG Available Diagnostic Imaging Comments CXR--PER RADIOLOGIST REPORT AT 2142 There is an ET tube with the tip at the thoracic inlet. There is an NG tube projecting over the stomach. There is gaseous distention of the stomach. There is some infiltrate present in the right upper lobe. There is some bibasilar discoid atelectasis. IMPRESSION: Right upper lobe infiltrate. ET tube tip is at the thoracic inlet. It could safely be advanced [address] HEAD--PER RADIOLOGIST REPORT AT 2158 The ventricles are normal in size, shape and position. There are no masses or hemorrhages. There are no extra-axial fluid collections. IMPRESSION: Negative CT head. There is no evidence for acute infarct. CXR--POST RE-INTUBATION-- FINDINGS: Endotracheal tube tip terminates 4 cm above the iván. Gastric tube tip terminates below the field of view. There is right mid zone atelectasis. Lung volumes are small. Heart size is accentuated by portable technique. No pleural effusion or pneumothorax. IMPRESSION: 1. Right mid zone atelectasis and small lung volumes. Reviewed: Reviewed by Me Critical Care Note Critical Care Start Time: 20:10 Stop Time: 23:25 Departure Communication (Admissions) 2041--SPOKE WITH DR. CAREY, GLASSINE MACHINE TENDER, AND SENT TEXT OF PT'S EKG. ADVISES TO GIVE CARDIZEM BOLUS AND PLACE ON CARDIZEM DRIP. 2111--SPOKE WITH DR. JOHNSON, HOSPITALIST, ADVISES TRANSFER 2135--SPOKE WITH DR. CAREY AGAIN AND UPDATED HIM ON PT'S CONDITION. NO ADDITIONAL RECOMMENDATIONS AT THIS TIME 2199--CALLED [facility]. THEY WILL CALL BACK. ER STAFF ALSO CONTACTING [facility]. PT'S RADIOLOGY STUDIES CLOUDED TO [facility] 2204--DR. MOSLEY, ANESTHESIOLOGIST HERE FOR LP. 2226--[facility] CALLED BACK. THEY WILL CALL BACK. [facility] HAVE BEEN CONTACTED AND NONE ARE FLYING DUE TO WEATHER. [facility] CONTACTED FOR TRANSFER. 2307--DR. ANGUS PEPPER HAS ACCEPTED PT FOR TRANSFER. ORDERS FOR VANCOMYCIN, ACYCLOVIR AND DECADRON NOTED. 2324--[facility]S HERE FOR TRANSPORT. Impression Primary Impression: Severe sepsis Additional Impressions: Altered mental status POSSIBLE MENINGITIS/ENCEPHALITIS SVT (supraventricular tachycardia) Acute respiratory failure RUL INFILTRATE UTI (urinary tract infection) Mild renal insufficiency Hypomagnesemia Elevated liver enzymes Disposition: XFER SHT-TRM HOSP Condition: Critical Transfer Transfer Reason: Exceeds level of care Transfer Facility: [facility] [place] Method of Transfer: EMS ([facility]) Departure-Patient Inst. Referrals: MINDY MCBRIDE DO (PCP) Primary Care Physician MARIJA SCHWARTZ DO Aug 31, 2021 04:20
== END 2021-08-14 00:35 | disposition short-term general hospital (02) ==
LOC: EDUNIT# 20:10 → ER 20:13
DX: A41.9 Sepsis, unspecified organism (principal); R65.20 Severe sepsis without septic shock; J96.00 Acute respiratory failure, unspecified whether with hypoxia or hypercapnia; I47.1 Supraventricular tachycardia; I45.10 Unspecified right bundle-branch block; R41.82 Altered mental status, unspecified; N28.9 Disorder of kidney and ureter, unspecified; N39.0 Urinary tract infection, site not specified; E83.42 Hypomagnesemia; R91.8 Other nonspecific abnormal finding of lung field; R79.89 Other specified abnormal findings of blood chemistry; Z20.822 Contact with and (suspected) exposure to COVID-19; Z95.810 Presence of automatic (implantable) cardiac defibrillator
CPT/HCPCS: 36600; 70450; 71045 ×2; 80053; 80306; 81000; 82550; 82553; 82945; 83605; 83735; 83874; 83880; 84145; 84157; 84443; 84478; 85025; 85610; 85652; 85730; 86141; 86618; 86666 ×2; 86668; 86695 ×2; 86696 ×2; 86735; 86757 ×2; 86788 ×2; 86789 ×2; 87040; 87070 ×2; 87088; 87205; 87529; 87636; 89051; 93005; 93041; 94002; 96374; 96375; 99291; G0480 ×3; 36415; 80320; 80329

== ENCOUNTER → 2021-09-15 | Outpatient (CLI) | payer BC ==
[~2021-09-15] VITALS: Ht 190.5 cm; Wt 150.0 kg
== END | disposition home or self-care (01) ==
LOC: PREOP 05:32
PROVIDERS: ATTEND Surgery
DX: Z01.818 Encounter for other preprocedural examination (principal)

== ENCOUNTER 2021-09-22 09:49 | Day surgery (SDC) | payer BC ==
[2021-09-22] VITALS (10 sets, daily range): BP systolic 113–154; BP diastolic 57–101
[~2021-09-22] VITALS: Ht 190.5 cm; Wt 150.0 kg
[2021-09-22] MEDS ORDERED: LACTATED RINGERS 1,000 ML IV PRN (10:15)
[2021-09-22] MEDS ORDERED: ceFAZolin 2 GM IV Premixed 50 ML IV ONE (10:15)
[2021-09-22] MEDS ORDERED: fentaNYL INJ 100 MCG/2 ML AMP ONE (10:38)
[2021-09-22] MEDS ORDERED: proPOfol 200 MG/20 ML (DIPRIVAN) VIAL IV ONE (10:38)
[2021-09-22] MEDS ORDERED: ONDANSETRON 4 MG/2 ML (SDV) Z0FRAN ONE (10:38)
[2021-09-22] MEDS ORDERED: LIDOCAINE PF 2% 5 ML (XYLOCAINE) VIAL ONE (10:38)
[2021-09-22] MEDS ORDERED: MIDAZOLAM 2 MG/2 ML (VERSED) VIAL ONE (10:38)
--- NOTE | 2021-09-22 10:56 | Progress Note-Pre Operative ---
Pre-Operative Progress Note H&P Reviewed The H&P was reviewed, patient examined and no changes noted. Date Seen by Provider: Sep 22, 2021 Time Seen by Provider: 10:55 Date H&P Reviewed: Sep 22, 2021 Time H&P Reviewed: 10:55 Pre-Operative Diagnosis: abdominal wall cyst ALLISON BOOTH DO Sep 22, 2021 10:56
[2021-09-22] MEDS ORDERED: LIDOCAINE/EPI 1%-1:100,000 (XYLOCAINE) 20ML ONE (11:37)
[2021-09-22] MEDS ORDERED: HYDROmorphone 2 MG/ML VIAL (DILAUDID) ONE (11:50)
[2021-09-22] MEDS ORDERED: SEVOFLURANE (ULTANE) 15 ML INHAL SOLN ONE (12:04)
--- NOTE | 2021-09-22 12:08 | Discharge Inst-Simple/Standard ---
Discharge Inst-Standard Patient Instructions/Follow Up Plan of Care/Instructions/FU: 2 weeks Mikki Activity as Tolerated: No Discharge Diet: Regular Diet Other Inst to Patient Follow up Appt: Make appointment for 2 week. Instructions: No lifting greater than 10 pounds. No strenuous activity. May shower in 24 hours, no tub bath or soaking. Use incentive spirometer at home as directed. No Smoking Skin/Wound Care: Keep area clean and dry. Symptoms to Report: Appetite Changes, Extremity Discoloration, Numbness/Tingling, Swelling Increased, Bleeding Excessive, Eyesight Changes, Pain Increased, Urine Color Change, Constipation(Persistent), Fever over 101 degree F, Pain/Pressure in chest, Urinating Difficulty, Cough Up/Vomit Blood, Heart Beat Irreg/Pounding, Pain/Pressure in jaw, Vaginal Bleeding Increase, Cramps in feet or legs, Lightheadedness, Pain/Pressure in shoulder, Diarrhea(Persistent), Memory Changes Suddenly, Questions/Concerns, Weight gain consecutive days, Dizziness/Fainting, Nausea/Vomiting, Shortness of Breath, Weight gain over 2 pounds If questions or concerns contact your physician Or seek help at emergency department. ALLISON BOOTH DO Sep 22, 2021 12:08
[2021-09-22] MEDS ORDERED: HYDROmorphone 2 MG/ML VIAL (DILAUDID) IV ONE (12:30)
[2021-09-22] MEDS ORDERED: ONDANSETRON 4 MG/2 ML (SDV) Z0FRAN IVP PRN (12:30)
[2021-09-22] MEDS ORDERED: morphine INJ 10 MG/ML 1ML (SYR OR VIAL) IVP ONE (12:30)
--- NOTE | 2021-09-22 12:52 | Anesthesia-General Post-Op ---
General Patient Condition Mental Status/LOC: Same as Preop Cardiovascular: Satisfactory Nausea/Vomiting: Absent Respiratory: Satisfactory Pain: Controlled Complications: Absent Post Op Complications Complications None Follow Up Care/Instructions Patient Instructions None needed. Anesthesia/Patient Condition Patient Condition Patient is doing well in PACU, no complaints, stable vital signs, no apparent adverse anesthesia problems. No complications reported per nursing. HAVEN MOSLEY DO Sep 22, 2021 12:52
--- NOTE | 2021-09-22 21:30 | OPERATIVE REPORT ---
DATE OF SERVICE: 09/22/2021 PREOPERATIVE DIAGNOSIS: Abdominal wall cyst. POSTOPERATIVE DIAGNOSIS: Abdominal wall cyst. PROCEDURE: Excision of abdominal wall cyst 2 x 4 x 2.5 cm. SURGEON: Allison Kaye DO ANESTHESIA: General. ESTIMATED BLOOD LOSS: Minimal. COMPLICATIONS: None. INDICATIONS: The patient is a 25-year-old male with a cyst on the abdomen that had been there for quite a while, for several years. It appeared inflamed and he wishes to have it removed. He understands risks and benefits of procedure and wishes to proceed. Consent was signed in the chart. DESCRIPTION OF PROCEDURE: The patient was taken to the operating suite, was prepped and draped in sterile fashion. Timeout was performed. Elliptical incision was made around the visualized portion of the skin. The cautery was then used to dissect down through subcutaneous tissues. We then encountered the cyst that went more towards the deep abdominal wall and inferiorly. Lots of inflammatory chronic changes around it. The inferior portion of the skin was then cut larger elliptically in order to remove the entire cyst. Cautery was used to dissect down through the remainder of the subcutaneous tissues, removing the cyst in its entirety. The overall dimensions 2 x 4 x 2.5 cm. Wound was then irrigated and suctioned. Hemostasis was achieved. The skin was then closed using 3-0 nylon in simple interrupted fashion. The area was then washed and dried and sterile bandages were applied. The patient tolerated the procedure well without any complications, taken to recovery room in stable condition. Job ID: [id number] DocumentID: [id number] Dictated Date: 09/22/2021 12:54:43 Turn Down Worker Date: 09/22/2021 21:29:45 Dictated By: ALLISON KAYE DO
== END 2021-09-22 14:05 | disposition home or self-care (01) ==
LOC: SDC 09:49
PROVIDERS: ATTEND Surgery
DX: L72.11 Pilar cyst (principal); E66.01 Morbid (severe) obesity due to excess calories; Z68.42 Body mass index [BMI] 45.0-49.9, adult
CPT/HCPCS: 87081